=== PATIENT | male | born 1965 | race Caucasian/White ===

== ENCOUNTER → 2018-09-08 | Outpatient (REF) | payer OTHER ==
[2018-09-08 12:33] LABS: CHOLESTEROL LEVEL 181 MG/DL (<200); CHOLESTEROL RISK RATIO 6.703 (<5); GLUCOSE, FASTING 98 MG/DL (70-100); HDL CHOLESTEROL 27 MG/DL (>40); LDL CHOLESTEROL 120 MG/DL (<100); NON-HDL-C 154 MG/DL; PSA SCREENING 0.7 NG/ML (< 4.0); TRIGLYCERIDES LEVEL 171 MG/DL (<150)
== END ==
LOC: M SFHCLERA 09:03
DX: Z00.00 Encounter for general adult medical examination without abnormal findings (principal); R19.7 Diarrhea, unspecified
CPT/HCPCS: 82947

== ENCOUNTER → 2021-02-12 | Outpatient (CLI) | payer OTHER ==
--- NOTE | 2021-02-12 16:57 | ECGEPIP ---
[facility] Test Date: 2021-02-12 Pat Name: JAZMÍN DYE Department: Room: - Gender: Male [employer] Intelligence Analyst: DARREN : 1965 Requested By: LATRELL Echols Order Number: [id number] Reading MD: Hood Olivas Measurements Intervals [place] Rate: 56 P: 59 RI: 154 QRS: -4 QRSD: 92 T: 34 QT: 428 QTc: 413 Interpretive Statements sinus bradycardia Prominent voltage aVL No prior tracing for comparison. Clincal correlation advised Electronically Signed on 02-12-2021 16:56:30 EDT by Hood Olivas
== END ==
LOC: M EKG 08:52
PROVIDERS: ATTEND Orthopaedic Surgery
DX: Z01.810 Encounter for preprocedural cardiovascular examination (principal)